=== PATIENT | male | born 1990 | race Caucasian/White ===

== ENCOUNTER 2016-07-11 18:13 | Emergency (ER) | payer OTHER ==
[~2016-07-11] VITALS: Ht 182.9 cm; Wt 96.0 kg
[~2016-07-11 18:13] MED LIST: LEVO.075 PO; LORTA5 PO
[2016-07-11 18:16] VITALS: BP 161/106; PULSE 71; RESP 16; TEMP 98; O2SAT 97
[2016-07-11] MEDS ORDERED: MOTR200T4 PO (19:56)
--- NOTE | 2016-07-11 19:57 | PD ---
HPI Chief Complaint: Pain: Acute or Chronic Time Seen by Provider: 19:55 Travel History International Travel<30 days: No Contact w/Intl Traveler<30days: No Traveled to known affect area: No History of Present Illness HPI 26-year-old male arrives with about 2 months of low back pain. It's most as on the right however occasionally both sides are painful. The pain comes and goes. 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 Pain can become severe with heavy lifting. He's had no change in bowel or bladder habits. Had no fever. A constant midline spinal tenderness has not been experienced. Denies IV drug use or any drug use for that matter. He denies using meog-kob-[id number] pain medications. In the past massage was quite helpful in relieving symptoms. He denies any specific fall or event he thinks may have caused injury. He believes for a minute or two yesterday evening he may have felt some numbness in the lower back. No LE weakness or perineal/perianal sensory loss or paresthesia occurred. No radiation of pain occurred. Pt state's, "I probably have just been overdoing it at work." PFSH Past Medical History ADHD: Yes Diminished Hearing: No Endocrine: Yes (HYPOTHYROID) Thyroid Disease: Yes (HYPOTHYROID) Influenza Vaccination: No Social History Alcohol Use: Yes (rarely) Tobacco Use: No Substance Use: No Allergies-Medications (Allergen,Severity, Reaction): Coded Allergies: No Known Allergies (Verified , 07/11/16) Reported Meds & Prescriptions Reported Meds & Active Scripts Active Motrin Ib (Ibuprofen) 200 Mg Tab 400 Mg PO Q6H PRN Review of Systems General / Constitutional: No: Fever, Chills Cardiovascular: No: Chest Pain or Discomfort, Palpitations Musculoskeletal: Positive: Pain Physical Exam Narrative GENERAL: 26 yo M, pleasant, NAD SKIN: Warm and dry. RESPIRATORY: No accessory muscle use. Clear to auscultation. Breath sounds equal bilaterally. GASTROINTESTINAL: Abdomen soft, non-tender, nondistended. Hepatic and splenic margins not palpable. MUSCULOSKELETAL: No focal spinal tenderness. Minimal TTP overlying R iliac crest. R para-lumbar musculature is somewhat tender c/w strain or spasm. Possible R lower back mass present without overlying skin change. NEUROLOGICAL: Awake and alert. No obvious cranial nerve deficits. Motor grossly within normal limits. Five out of 5 muscle strength in the arms and legs. Normal speech. 2+ DTRs at patella bilaterally. Dorsi/plantar flexion intact at ankles. Knee flexion/extension normal and equal. Pt ambulatory without difficulty. PSYCHIATRIC: Appropriate mood and affect; insight and judgment normal. Data Data Last Documented VS Vital Signs Date Time Temp Pulse Resp B/P Pulse Ox O2 Delivery O2 Flow Rate FiO2 07/11/16 18:16 98.0 71 16 161/106 97 MDM Medical Decision Making Medical Screen Exam Complete: Yes Emergency Medical Condition: Yes Differential Diagnosis Myofascial strain, spinal cord compression 2/2 disc/mass/infection, sciatica, soft-tissue mass Narrative Course Exam is reassuring. Pt has steady gait. Musculoskeletal etiology without cord involvement is considered most probable in this scenario. Possible right lower lumbar soft tissue mass present. Patient agrees to follow up with PMD for evaluation. If mass persists eventual tissue sample may be necessary. Pt and significant other verbalized understanding of concern for soft tissue mass. Pt verbalized intent to follow up with PMD. He couldn't remember PMD name however does remember street address. Pt preferred to avoid medication/oral analgesia however agreed to try Motrin. Return precautions discussed. Diagnosis Primary Impression: Low back pain Qualified Code: M54.5 - Chronic right-sided low back pain without sciatica Referrals: Primary Care Physician 1 week Additional Instructions: You have a choice when it comes to health care, and we are glad that you chose [facility]. Hopefully, we have met your expectations on today's visit. You are welcome to return to [facility] at any time, as we are committed to meeting the health care needs of our community. Med/Other Pt SpecificInfo: Prescription(s) given Scripts Ibuprofen (Motrin Ib)200 Mg Mpi052 Mg PO Q6H PRN (PAIN SCALE 4 TO 10) #30 TAB Ref 0 Prov:Tico Chiang MD 07/11/16 Disposition: 01 DISCHARGE HOME Condition: Stable Tico Chiang MD Jul 11, 2016 19:57
== END 2016-07-11 20:05 | disposition home or self-care (01) ==
LOC: PHED 18:13 → PHEFT 20:05
DX: M54.5 Low back pain (principal); E03.9 Hypothyroidism, unspecified
CPT/HCPCS: 99283